=== PATIENT | female | born 1955 | race Caucasian/White ===

== ENCOUNTER 2017-10-14 12:42 | Day surgery (SDC) | payer BC ==
[~2017-10-14] VITALS: Ht 167.6 cm; Wt 117.0 kg
[~2017-10-14 12:42] MED LIST: ALBU90I INH; CARISOPRODOL 350 MG PO; LEVSOD200 PO; LIDO4TC TOP; LIDO5TP TOP; LORA.5 PO; MELO7.5 PO; OLME20 PO; PROACE100 PO; VARE1 PO
[2017-10-14] MEDS ORDERED: LOSARTAN POTAS100 MG PO (13:17)
[2017-10-14] MEDS ORDERED: Prozac20 MG (13:18)
[2017-10-14] MEDS ORDERED: METF500C PO (13:18)
[2017-10-14] MEDS ORDERED: ADULT ASPIRIN R81 MG PO (13:19)
[2017-10-14] MEDS ORDERED: GLIP2.5ER PO (13:19)
== END 2017-10-14 15:38 | disposition home or self-care (01) ==
LOC: ORSCSDS 12:42
PROVIDERS: Internal Medicine Gastroenterology
PROC: 0DBK8ZX Excision of Ascending Colon, Via Natural or Artificial Opening Endoscopic, Diagnostic (ICD-10-PCS; principal; 2017-10-14 14:00)
PROC: 0DBN8ZX Excision of Sigmoid Colon, Via Natural or Artificial Opening Endoscopic, Diagnostic (ICD-10-PCS; principal; 2017-10-14 14:00)
DX: Z12.11 Encounter for screening for malignant neoplasm of colon (principal); Z80.0 Family history of malignant neoplasm of digestive organs; Z86.010 Personal history of colon polyps; K57.30 Diverticulosis of large intestine without perforation or abscess without bleeding; D12.2 Benign neoplasm of ascending colon; K63.5 Polyp of colon; I10 Essential (primary) hypertension; E03.9 Hypothyroidism, unspecified; E11.9 Type 2 diabetes mellitus without complications; G47.33 Obstructive sleep apnea (adult) (pediatric); E66.01 Morbid (severe) obesity due to excess calories; Z68.41 Body mass index [BMI] 40.0-44.9, adult; Z79.899 Other long term (current) drug therapy; Z79.82 Long term (current) use of aspirin; Z87.891 Personal history of nicotine dependence
CPT/HCPCS: 82947; 88305; J7120

== ENCOUNTER 2021-02-07 12:07 | Day surgery (SDC) | payer MEDICARE, OTHER ==
[~2021-02-07] VITALS: Ht 167.6 cm; Wt 107.2 kg
[~2021-02-07 12:07] MED LIST changes: +ADULT ASPIRIN R81 MG PO; +GLIP2.5ER PO; +LOSARTAN POTAS100 MG PO; +METF500C PO; +Prozac20 MG
[2021-02-07] MEDS ORDERED: METFORMIN ER1000 M2 PO ×2 (13:13→13:18)
[2021-02-07] MEDS ORDERED: TELM80 PO ×2 (13:14→13:17)
[2021-02-07] MEDS ORDERED: GLIP2.5ER PO (13:18)
[2021-02-07] MEDS ORDERED: LORA.5 PO (13:19)
[2021-02-07] MEDS ORDERED: LEVOTHYROXINE200 MCG PO (13:20)
[2021-02-07] MEDS ORDERED: LEVSOD25 PO (13:20)
[2021-02-07] MEDS ORDERED: HYOS.125 SL (13:21)
[2021-02-07] MEDS ORDERED: CYCL10 PO (13:21)
[2021-02-07] MEDS ORDERED: ROSU10TA PO (13:22)
[2021-02-07] MEDS ORDERED: DICL25ER PO (13:23)
--- NOTE | 2021-02-07 14:44 | NUR ---
02/07/21 1444 Jose Martin Christiansen LIDOCAINE 1% MIXED 1:1 WITH BUPIVICAINE 0.5% FOR LOCAL INJECTION.
== END 2021-02-07 15:54 | disposition home or self-care (01) ==
LOC: ORSCSDS 12:07
PROVIDERS: Podiatrist
PROC: 0JBR0ZZ Excision of Left Foot Subcutaneous Tissue and Fascia, Open Approach (ICD-10-PCS; principal; 2021-02-07 13:15)
DX: D17.39 Benign lipomatous neoplasm of skin and subcutaneous tissue of other sites (principal); I10 Essential (primary) hypertension; G47.33 Obstructive sleep apnea (adult) (pediatric); Z87.891 Personal history of nicotine dependence; E11.9 Type 2 diabetes mellitus without complications; E03.9 Hypothyroidism, unspecified; K21.9 Gastro-esophageal reflux disease without esophagitis; Z79.84 Long term (current) use of oral hypoglycemic drugs; Z79.82 Long term (current) use of aspirin; E66.01 Morbid (severe) obesity due to excess calories; Z68.38 Body mass index [BMI] 38.0-38.9, adult
CPT/HCPCS: 82947; 88304; J0690; J1100; J1885; J2405; J2704; J3010

== ENCOUNTER 2022-12-12 13:50 | Day surgery (SDC) | payer MEDICARE, OTHER ==
[~2022-12-12] VITALS: Ht 165.1 cm; Wt 109.9 kg
[~2022-12-12 13:50] MED LIST changes: +CYCL10 PO; +DICL25ER PO; +HYOS.125 SL; +LEVOTHYROXINE200 MCG PO; +LEVSOD25 PO; +METFORMIN ER1000 M2 PO; +ROSU10TA PO; +TELM80 PO; +TORS10 PO
--- NOTE | 2022-12-12 15:32 | NUR ---
12/12/22 [address] TEJEDA ANESTHESIA RECORD
[2022-12-12 16:40] VITALS: BP 151/95
--- NOTE | 2022-12-12 16:40 | NUR ---
PT BACK TO DAY SURGERY. AWAKE AND ORIENTED X3. NO COMPLAINTS. PO FLUIDS GIVEN.
[2022-12-12 16:55] VITALS: BP 152/75
[2022-12-12 17:13] VITALS: BP 141/78
--- NOTE | 2022-12-12 17:23 | NUR ---
DISCHARGE NOTE SBAR FROM [facility]. PT A&OX4, BREATHING RA, ABDOMEN SOFT AND NON TENDER, NO COMPLAINTS. PT TOLERATING PO FLUIDS. FAMILY AT BEDSIDE. Patient up to Ambulate independently. Gait steady. Discharge instructions reviewed with patient. Patient verbalizes understanding. Copy given to patient to take home. Discharged via wheelchair to private car for ride home.
== END 2022-12-12 17:25 | disposition home or self-care (01) ==
LOC: ORSCMMR 13:50 → ORD 15:30 → ORSCMMR 17:25 → ORSCSDS 12-31 15:00
PROVIDERS: Internal Medicine Gastroenterology
PROC: 0DBE8ZX Excision of Large Intestine, Via Natural or Artificial Opening Endoscopic, Diagnostic (ICD-10-PCS; principal; 2022-12-12 15:30)
PROC: 0DBM8ZX Excision of Descending Colon, Via Natural or Artificial Opening Endoscopic, Diagnostic (ICD-10-PCS; principal; 2022-12-12 15:30)
PROC: 0DB78ZX Excision of Stomach, Pylorus, Via Natural or Artificial Opening Endoscopic, Diagnostic (ICD-10-PCS; principal; 2022-12-12 15:30)
PROC: 0DB58ZX Excision of Esophagus, Via Natural or Artificial Opening Endoscopic, Diagnostic (ICD-10-PCS; principal; 2022-12-12 15:30)
DX: R10.13 Epigastric pain (principal); R19.4 Change in bowel habit; Z86.010 Personal history of colon polyps; D12.4 Benign neoplasm of descending colon; K21.00 Gastro-esophageal reflux disease with esophagitis, without bleeding; Z80.0 Family history of malignant neoplasm of digestive organs; G47.33 Obstructive sleep apnea (adult) (pediatric); E11.9 Type 2 diabetes mellitus without complications; E66.01 Morbid (severe) obesity due to excess calories; Z68.41 Body mass index [BMI] 40.0-44.9, adult; K57.30 Diverticulosis of large intestine without perforation or abscess without bleeding; K29.70 Gastritis, unspecified, without bleeding; K22.2 Esophageal obstruction; Z79.899 Other long term (current) drug therapy
CPT/HCPCS: 82947; 88305; 88312; 88342; J2704; J7120